=== PATIENT | female | born 1955 ===

== ENCOUNTER → 2021-08-08 | Day surgery (SDC) | payer OTHER ==
[~2021-08-08] MED LIST: FOSAMAX70 MG PO; PEPCID AC10 MG PO; TRENTAL PO
== END | disposition home or self-care (01) ==
LOC: ADM 08-01 11:15 → CIR.AMB 06:42
PROVIDERS: ATTEND Colon & Rectal Surgery
DX: K64.8 Other hemorrhoids (principal); K64.4 Residual hemorrhoidal skin tags